=== PATIENT | male | born 1930 | race Native Hawaiian/Other Pacific Islander ===

== ENCOUNTER 2017-04-11 09:20 | Outpatient (CLI) | payer OTHER, BC | END 2017-04-11 19:28 | disposition home or self-care (01) | LOC: LABW 09:20 | PROVIDERS: Specialist | DX: E78.2 Mixed hyperlipidemia (principal); Z79.899 Other long term (current) drug therapy; Z51.81 Encounter for therapeutic drug level monitoring | CPT/HCPCS: 36415; 80061; 80076 ==

== ENCOUNTER 2017-12-25 08:09 | Outpatient (CLI) | payer OTHER, BC ==
[~2017-12-25] VITALS: Ht 162.6 cm; Wt 59.9 kg
== END 2017-12-25 23:10 | disposition home or self-care (01) ==
LOC: NM 08:09
DX: I25.10 Atherosclerotic heart disease of native coronary artery without angina pectoris (principal)
CPT/HCPCS: A9500; J2785

== ENCOUNTER 2017-12-29 01:59 | Emergency (ER) | payer OTHER, BC ==
[~2017-12-29] VITALS: Ht 162.6 cm; Wt 59.9 kg
[2017-12-29 02:11] VITALS: TEMP 97.7
[2017-12-29 04:10] VITALS: BP 190/78
== END 2017-12-29 04:10 | disposition home or self-care (01) ==
LOC: ED 01:59
DX: K40.90 Unilateral inguinal hernia, without obstruction or gangrene, not specified as recurrent (principal); R19.09 Other intra-abdominal and pelvic swelling, mass and lump
CPT/HCPCS: 99281

== ENCOUNTER 2018-01-02 17:52 | Observation (INO) | payer OTHER, BC ==
[~2018-01-02] VITALS: Ht 162.6 cm; Wt 58.1 kg
[2018-01-02 18:50] VITALS: BP 156/58; TEMP 98; Ht 162.6 cm; Wt 58.1 kg
[2018-01-02] MEDS ORDERED: LISI20TA11 PO (19:30)
[2018-01-02] MEDS ORDERED: SIMV40TA57 (19:31)
[2018-01-02] MEDS ORDERED: ASPIRIN CHLD81 MG (19:31)
[2018-01-02] MEDS ORDERED: METOPROLOL25 M1 (19:31)
[2018-01-02] MEDS ORDERED: XALATAN0.005 % OP (19:33)
[2018-01-02 20:00] VITALS: BP 150/65; TEMP 97.9
[2018-01-02 21:06] LABS: PLATELET COUNT 138 K/uL (142-355)
[2018-01-02 21:21] LABS: POTASSIUM 2.5 mmol/L (3.6-5.2)
[2018-01-03] VITALS (13 sets, daily range): BP systolic 118–187; BP diastolic 52–90; TEMP 97.4–99.6
[2018-01-03 05:41] LABS: POTASSIUM 3.9 mmol/L (3.6-5.2)
[2018-01-03 05:48] LABS: PLATELET COUNT 182 K/uL (142-355)
--- NOTE | 2018-01-03 08:41 | NUR ---
PATIENT ADMITTED WITH HERNIA AND HAS A PMH OF HTN AND HIGH CHOL AND IS ON NPO AND IBW 130+/-10% AND WEIGHT AT 125.8 LBS.A ND IS 97% IBW AND KCAL NEEDS [id number], PRO AT 59 TO 69 GRAMS AND FLUIDS [id number] ML PER DAY. NEED TO ADVANCE MARLON AND GOAL TO EAT 75% OF MEALS.
--- NOTE | 2018-01-03 16:00 | NUR ---
PT BROUGHT BACK FROM SURGERY VIA STRETCHER. RR EQUAL NON LABORED AT 16. VITALS 97.6 AXILLARY. 67 HR. 170/73 96%. DRESSING DRY AND INTACT. VITALS TAKEN PER PROTOCOL. NAD NOTED. FAMILY AT BS. NAD NOTED.
--- NOTE | 2018-01-03 16:05 | NUR ---
PT TAKEN TO SURGERY VIA STRETCHER AND OR STAFF. NAD NOTED.
[2018-01-04] VITALS: BP 141/77; TEMP 98.1
--- NOTE | 2018-01-04 | NUR ---
2300 PATIENT UNABLE TO URINATE, REC'D ORDER FROM DR. RODRIGUEZ TO [facility] GUILLORY CATH & LEAVE IN PLACE THRUOUT THE NIGHT. #16 FR GUILLORY INSERTED WITH IMMEDIATE RETURN OF 800CC OF CLEAR FADUMO URINE.
[2018-01-04 04:00] VITALS: BP 145/65; TEMP 97.6
[2018-01-04 05:41] LABS: PLATELET COUNT 211 K/uL (142-355)
[2018-01-04 06:00] LABS: POTASSIUM 4.2 mmol/L (3.6-5.2)
[2018-01-04 08:00] VITALS: BP 174/75; TEMP 98.6
[2018-01-04 12:00] VITALS: BP 164/65; TEMP 99.7
[2018-01-04 13:07] LABS: POTASSIUM 3.7 mmol/L (3.6-5.2)
--- NOTE | 2018-01-04 13:08 | NUR ---
0930 DR RODRIGUEZ AT AT THIS TIME. BLADDER TRAINING STARTED AT THIS TIME PER MD ORDERS AND PROTOCOL. PT EXPLAINED PROCEDURE AND FAMILY. BOTH VERBLAIZED UNDERSTANDING. 1100 BLADDER TRAINING COMPLETED AT THIS TIME. GUILLORY CATH DC'D PT TOLERATED WELL 1300 PT ASSISTED UP TO BR. PT AMBULATED BACK TO CHAIR. PT VOID SMALL AMT IN URINAL BUT PT STATES HE DOES THE SAME THING AT HOME DAILY. NO BLADDER DISTENTION OR CO OF PAIN AT THIS TIME. WILL CON'T TO MONIOTR
== END 2018-01-04 16:10 | disposition home or self-care (01) ==
LOC: MED/SURG 17:52
PROVIDERS: ADMIT Student in an Organized Health Care Education/Training Program
PROC: 0YU80JZ Supplement Left Femoral Region with Synthetic Substitute, Open Approach (ICD-10-PCS; principal; 2018-01-03)
DX: K41.90 Unilateral femoral hernia, without obstruction or gangrene, not specified as recurrent (principal); K55.069 Acute infarction of intestine, part and extent unspecified
CPT/HCPCS: 36415; 80048; 80053; 83735; 85027; 94760; 96365; 96366; 96367; 96372; 99220; C1729; C1781; G0378; G0379; J0330; J0610; J0690; J1100; J1170; J1644; J2001; J2250; J2270; J2405; J2704; J2765; J3010; J3490; J7120; Q9963

== ENCOUNTER 2018-04-15 07:39 | Day surgery (SDC) | payer OTHER, BC ==
[~2018-04-15 07:39] MED LIST: ASPIRIN CHLD81 MG; LISI20TA11 PO; METOPROLOL25 M1; SIMV40TA57; XALATAN0.005 % OP
[2018-04-15 08:27] LABS: PLATELET COUNT 254 K/uL (142-355)
[2018-04-15 08:44] LABS: POTASSIUM 4.9 mmol/L (3.6-5.2)
== END 2018-04-15 10:31 | disposition home or self-care (01) ==
LOC: OR 07:39
PROVIDERS: Student in an Organized Health Care Education/Training Program
PROC: 0DBN8ZZ Excision of Sigmoid Colon, Via Natural or Artificial Opening Endoscopic (ICD-10-PCS; principal; 2018-04-15)
DX: D12.5 Benign neoplasm of sigmoid colon (principal); K57.30 Diverticulosis of large intestine without perforation or abscess without bleeding; K64.8 Other hemorrhoids; K59.00 Constipation, unspecified; Z12.11 Encounter for screening for malignant neoplasm of colon
CPT/HCPCS: 80053; 85027; J2001; J2704

== ENCOUNTER 2018-09-10 11:44 | Outpatient (CLI) | payer OTHER, BC ==
[2018-09-10 12:45] LABS: POTASSIUM 4.4 mmol/L (3.6-5.2)
== END 2018-09-10 22:47 | disposition home or self-care (01) ==
LOC: LABW 11:44
PROVIDERS: Nurse Practitioner Adult Health
DX: I48.0 Paroxysmal atrial fibrillation (principal)
CPT/HCPCS: 36415; 80048; 84436; 84443; 84479; 85379; 93306

== ENCOUNTER 2019-02-25 11:55 | Outpatient (CLI) | payer OTHER, BC ==
[2019-02-25 12:20] LABS: PLATELET COUNT 209 K/uL (142-355)
[2019-02-25 13:28] LABS: POTASSIUM 4.2 mmol/L (3.6-5.2)
== END 2019-02-25 22:57 | disposition home or self-care (01) ==
LOC: LABW 11:55
PROVIDERS: Internal Medicine
DX: I25.10 Atherosclerotic heart disease of native coronary artery without angina pectoris (principal); E78.2 Mixed hyperlipidemia; Z79.899 Other long term (current) drug therapy; I10 Essential (primary) hypertension; E78.00 Pure hypercholesterolemia, unspecified
CPT/HCPCS: 80053; 80061; 80076; 81000; 84439; 84443; 85027

== ENCOUNTER 2019-03-08 09:41 | Emergency (ER) | payer OTHER, BC ==
[~2019-03-08] VITALS: Ht 162.6 cm; Wt 55.3 kg
[2019-03-08 10:42] VITALS: BP 120/82; TEMP 98.2
== END 2019-03-08 10:43 | disposition home or self-care (01) ==
LOC: ED 09:41
DX: K59.09 Other constipation (principal)
CPT/HCPCS: 99283

== ENCOUNTER 2020-01-07 07:46 | Outpatient (CLI) | payer OTHER, BC | END 2020-01-07 20:21 | disposition home or self-care (01) | LOC: CT 07:46 | DX: R10.84 Generalized abdominal pain (principal) | CPT/HCPCS: 36415; 82565; 84520; Q9963 ==

== ENCOUNTER 2020-01-19 09:29 | Outpatient (CLI) | payer OTHER, BC | END 2020-01-19 23:59 | disposition home or self-care (01) | LOC: LAB 09:29 | DX: Z20.828 Contact with and (suspected) exposure to other viral communicable diseases (principal) | CPT/HCPCS: 87635; G2023; U00003 ==

== ENCOUNTER 2020-04-20 16:00 | Outpatient (CLI) | payer OTHER, BC | END 2020-04-20 20:03 | disposition home or self-care (01) | LOC: LAB 16:00 | DX: R30.0 Dysuria (principal) | CPT/HCPCS: 87077; 87086; 87088; 87186 ==

== ENCOUNTER 2020-06-21 15:26 | Inpatient (IN) | payer OTHER, BC ==
[~2020-06-21] VITALS: Ht 162.6 cm; Wt 51.5 kg
[2020-06-21 15:35] VITALS: BP 134/63; TEMP 98.9
[2020-06-21 16:50] LABS: PLATELET COUNT 144 K/uL (142-355)
[2020-06-21 16:57] LABS: POTASSIUM 3.9 mmol/L (3.6-5.2)
[2020-06-21 17:15] VITALS: BP 131/70
[2020-06-21 19:30] VITALS: BP 133/61
[2020-06-21 23:02] VITALS: BP 129/91; TEMP 98; Ht 162.6 cm; Wt 51.5 kg
[2020-06-22] VITALS (7 sets, daily range): BP systolic 127–174; BP diastolic 63–89; TEMP 97.3–98.9
[2020-06-22 07:45] LABS: PLATELET COUNT 126 K/uL (142-355)
[2020-06-22 07:51] LABS: POTASSIUM 4.1 mmol/L (3.6-5.2)
[2020-06-22] MEDS ORDERED: TAMSULOSIN0.4 MG PO (09:33)
[2020-06-22] MEDS ORDERED: XARELTO15 MG PO (09:34)
[2020-06-23 04:25] VITALS: BP 168/85; TEMP 97.7
[2020-06-23 05:59] LABS: POTASSIUM 4.1 mmol/L (3.6-5.2)
[2020-06-23 06:23] LABS: PLATELET COUNT 124 K/uL (142-355)
[2020-06-23 08:00] VITALS: BP 184/87; TEMP 98
[2020-06-23 12:00] VITALS: BP 161/85; TEMP 98.1
== END 2020-06-23 14:16 | disposition home or self-care (01) | DRG 177 ==
LOC: ED 15:26 → MED/SURG 18:00
PROVIDERS: Emergency Medicine Emergency Medical Services; ADMIT Internal Medicine Endocrinology, Diabetes & Metabolism; ATTEND Internal Medicine Endocrinology, Diabetes & Metabolism
DX: U07.1 COVID-19 (principal); J18.8 Other pneumonia, unspecified organism; N17.9 Acute kidney failure, unspecified; E78.49 Other hyperlipidemia; N40.0 Benign prostatic hyperplasia without lower urinary tract symptoms; H40.89 Other specified glaucoma; I10 Essential (primary) hypertension; I25.10 Atherosclerotic heart disease of native coronary artery without angina pectoris; E86.0 Dehydration
CPT/HCPCS: 36415; 80048; 80053; 81000; 85007; 85027; 87040; 87502; 87635; 94760; 96360; 96365; 99284; J0456; J0696; J1100; U0003

== ENCOUNTER 2020-07-13 11:37 | Outpatient (CLI) | payer OTHER, BC ==
[~2020-07-13 11:37] MED LIST changes: +TAMSULOSIN0.4 MG PO; +XARELTO15 MG PO
== END 2020-07-13 23:21 | disposition home or self-care (01) ==
LOC: RAD 11:37
PROVIDERS: ATTEND Internal Medicine
DX: J40 Bronchitis, not specified as acute or chronic (principal)

== ENCOUNTER 2020-09-13 10:11 | Outpatient (CLI) | payer OTHER, BC ==
[2020-09-13 10:50] LABS: PLATELET COUNT 189 K/uL (142-355)
[2020-09-13 11:24] LABS: POTASSIUM 3.7 mmol/L (3.6-5.2)
== END 2020-09-13 20:46 | disposition home or self-care (01) ==
LOC: LABW 10:11
PROVIDERS: ATTEND Nurse Practitioner
DX: E78.49 Other hyperlipidemia (principal); I25.10 Atherosclerotic heart disease of native coronary artery without angina pectoris; Z79.899 Other long term (current) drug therapy
CPT/HCPCS: 36415; 80053; 80061; 81000; 82248; 84439; 84443; 85027

== ENCOUNTER 2020-09-30 08:38 | Outpatient (CLI) | payer OTHER, BC ==
[2020-09-30 09:07] LABS: POTASSIUM 4.1 mmol/L (3.6-5.2)
== END 2020-09-30 22:13 | disposition home or self-care (01) ==
LOC: LABW 08:38
PROVIDERS: ATTEND Nurse Practitioner Adult Health
DX: E87.6 Hypokalemia (principal); Z09 Encounter for follow-up examination after completed treatment for conditions other than malignant neoplasm
CPT/HCPCS: 36415; 80048

== ENCOUNTER 2020-10-28 09:19 | Outpatient (CLI) | payer OTHER, BC ==
[2020-10-28 09:36] LABS: POTASSIUM 3.7 mmol/L (3.6-5.2)
== END 2020-10-28 20:25 | disposition home or self-care (01) ==
LOC: LABW 09:19
PROVIDERS: ATTEND Nurse Practitioner Adult Health
DX: E87.6 Hypokalemia (principal); Z09 Encounter for follow-up examination after completed treatment for conditions other than malignant neoplasm
CPT/HCPCS: 36415; 80048

== ENCOUNTER 2020-12-07 14:21 | Outpatient (CLI) | payer OTHER, BC ==
[2020-12-07 14:32] LABS: PLATELET COUNT 248 K/uL (142-355)
== END 2020-12-07 19:28 | disposition home or self-care (01) ==
LOC: LABW 14:21
PROVIDERS: ATTEND Specialist
DX: R44.2 Other hallucinations (principal)
CPT/HCPCS: 36415; 80048; 85027